=== PATIENT | male | born 1965 | race Caucasian/White ===

== ENCOUNTER → 2018-08-27 | Outpatient (REF) | payer BC | LOC: M LAB LCGH 09:09 | PROVIDERS: ATTEND Surgery | DX: K21.9 Gastro-esophageal reflux disease without esophagitis (principal); Z80.0 Family history of malignant neoplasm of digestive organs; K62.5 Hemorrhage of anus and rectum ==

== ENCOUNTER → 2019-03-30 | Outpatient (CLI) | payer OTHER ==
--- NOTE | 2019-04-01 10:53 | REP ---
MRI cervical spine without contrast: History: Neck pain. Numbness in the left hand. Headaches. No comparison cervical spine imaging. Technique: Sagittal and axial T1 and T2-weighted scans are acquired in the usual fashion with and without fat saturation. Sequences include spin echo, turbo spin-echo, and STIR imaging sequences. MRI findings: Cervical vertebral body heights are preserved. There is some straightening. Alignment is otherwise normal. Cervical cord is normal in coarse, caliber, and signal intensity on T1 and T2-weighted scans. Axial and sagittal images taken at the C2-3 disc level demonstrates left-sided uncovertebral spurring and disc bulging. This is mild in degree. At C3-C4, there is minimal disc bulging and minimal uncovertebral spurring bilaterally. At C4-C5, mild bilateral uncovertebral spurring is present. No central canal stenosis is noted. Mild disc narrowing. At C5-C6, there is a broad-based central focal disc protrusion effacing the ventral subarachnoid space and contacting the ventral margin of the cord. There is uncovertebral spurring bilaterally at this C5-C6, left more so than right. The C6-C7 disc level shows no significant finding. C7-T1 is unremarkable. Impression: Multilevel degenerative spondylosis changes with mild bilateral uncovertebral spurring at each level C3-4 through C5-6. There is uncovertebral spurring on the left at C2-3 as well. Broad-based central disc protrusion at C5-6. Electronically Signed by Benedicto John MD 04/01/2019 11:28 A
== END ==
LOC: M RAD 11:34
PROVIDERS: ATTEND Orthopaedic Surgery
DX: M50.31 Other cervical disc degeneration, high cervical region (principal); M50.321 Other cervical disc degeneration at C4-C5 level; M50.322 Other cervical disc degeneration at C5-C6 level; M50.323 Other cervical disc degeneration at C6-C7 level; M25.78 Osteophyte, vertebrae